=== PATIENT | male | born 1970 | race Caucasian/White ===

== ENCOUNTER 2018-06-01 21:21 | Emergency (ER) | payer BC ==
[2018-06-01] MEDS: ASPIRIN 81 MG CHEWABLE TABLET PO ONE (21:45)
--- NOTE | 2018-06-01 21:45 | Emergency Department Record ---
History of Present Illness - General Chief Complaint: Arrythmia/Palpitations Stated Complaint: RACING HEART RATE, JAW PAIN Time Seen by Provider: 06/01/18 21:25 Source: Patient Mode of Arrival: Ambulatory Limitations: No limitations - History of Present Illness Initial Comments: 48 yo male presents to ED for evaluation of intermittent "racing heart" and jaw pain, is concerned about possible heart problems related to his parathyroid as the patient's twin brother had similar symptoms. Patient reports fatigue as well, is concerned about his thyroid as well. Patient reports that his symptoms seem worse while at rest or with emotional stimulus, denies symptoms with exertion. Patient denies symptoms with exercise, states these symptoms have been present for months. MD Complaint: "Heart racing" Onset/Timin -: Hour(s) Associated Symptoms: Anxiety - Related Data Home Medications Medication Instructions Recorded Confirmed Last Taken No Home Med [NO HOME MEDS] 06/01/18 06/01/18 Unknown Allergies Allergy/AdvReac Type Severity Reaction Status Date / Time No Known Drug Allergies Allergy Verified 06/01/18 21:27 Travel Screening - Travel/Exposure Within Last 30 Days Have you traveled within the last 30 days?: No - Travel Symptoms Symptom Screening: None Review of Systems Constitutional: Denies: Chills, Fever, Malaise, Night sweats Eyes: Denies: Eye discharge, Eye pain ENT: Reports: Other (Jaw pain). Denies: Congestion, Ear pain, Epistaxis Respiratory: Denies: Cough, Dyspnea Cardiovascular: Reports: Palpitations. Denies: Chest pain, Dyspnea on exertion Endocrine: Reports: Fatigue. Denies: Heat or cold intolerance Gastrointestinal: Denies: Abdominal pain, Nausea, Vomiting Genitourinary: Denies: Incontinence, Retention Musculoskeletal: Denies: Arthralgia, Back pain Skin: Denies: Bruising, Change in color Neurological: Denies: Abnormal gait, Confusion, Headache, Seizure Psychiatric: Denies: Anxiety Hematological/Lymphatic: Denies: Anemia, Blood Clots Past Medical History - SOCIAL HISTORY Smoking Status: Never smoker Alcohol Use: None Drug Use: None - RESPIRATORY Hx Respiratory Disorders: No - CARDIOVASCULAR Hx Cardio Disorders: No - NEURO Hx Neuro Disorders: No - GI Hx GI Disorders: No - Hx Genitourinary Disorders: No - ENDOCRINE Hx Endocrine Disorders: No - MUSCULOSKELETAL Hx Musculoskeletal Disorders: No - PSYCH Hx Psych Problems: Yes Hx Anxiety: Yes - HEMATOLOGY/ONCOLOGY Hx Hematology/Oncology Disorders: No Family Medical History Any Significant Family History?: Yes Family Hx Comment (NOT TO BE USED IN PLACE OF ITEMS BELOW): Brother w/thyroid issues. Father w/parkinson's Hx Cancer: Mother Hx Heart Disease: Brother/Sister, Grandparents *Heart Comment: brother w/palpitations Physical Exam - General General Appearance: Alert, Oriented x3, Cooperative, Anxious Limitations: No limitations - Head Head exam: Atraumatic, Normocephalic, Normal inspection Head exam detail: negative: Abrasion, Contusion, Birch's sign, General tenderness, Hematoma, Laceration - Eye Eye exam: Normal appearance. negative: Conjunctival injection, Periorbital swelling, Periorbital tenderness, Scleral icterus - ENT Ear exam: negative: Auricular hematoma, Auricular trauma Nasal Exam: negative: Active bleeding, Discharge, Dried blood, Foreign body Mouth exam: negative: Drooling, Laceration, Muffled voice, Tongue elevation - Neck Neck exam: Normal inspection. negative: Meningismus, Tenderness - Respiratory Respiratory exam: Normal lung sounds bilaterally. negative: Rales, Respiratory distress, Rhonchi, Stridor - Cardiovascular Cardiovascular Exam: Regular rate, Normal rhythm, Normal heart sounds - GI/Abdominal GI/Abdominal exam: Soft. negative: Rebound, Rigid, Tenderness - Rectal Rectal exam: Deferred - exam: Deferred - Extremities Extremities exam: Normal inspection. negative: Pedal edema, Tenderness - Back Back exam: Denies: CVA tenderness (R), CVA tenderness (L) - Neurological Neurological exam: Alert, Normal gait, Oriented X3 - Psychiatric Psychiatric exam: Anxious - Skin Skin exam: Normal color. 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 Reevaluation #2: 06/01/18 22:10 Laboratory studies were reviewed and are grossly unremarkable for an acute process except for mildly low potassium 50 meq ordered PO. The patient was deemed to be low-risk for cardiac disease based on the patient s history and evaluation in the ED, HEART Score was applied and found to be 3. As a result, repeat Troponin in 3-hours appears appropriate and if negative for myocardial injury, the patient may be discharged home with appropriate outpatient follow-up for further evaluation. Reevaluation #3: 06/02/18 01:36 Repeat Troponin is negative. Patient is resting pain-free, appears stable for discharge with instructions for outpatient follow-up in 3-5 days as directed. Medical Decision Making - Lab Data Result diagrams: 06/01/18 21:43 06/01/18 21:43 Disposition Disposition: Discharge Clinical Impression: Atypical chest pain, Hypokalemia Disposition: Home, Self-Care Condition: (2) Stable Instructions: Hypokalemia (ED) Additional Instructions: Return to ED if your symptoms worsen or if you have any concerns. Follow-up with your family doctor in 3-5 days as directed for further cardiac evaluation and possible stress testing. Forms: Patient Portal Access Time of Disposition: 01:37 Quality - Quality Measures Quality Measures: N/A - Blood Pressure Screening Does Patient Have Any of the Following: No Blood Pressure Classification: Hypertensive Reading Systolic Measurement: 156 Diastolic Measurement: 96 Screening for High Blood Pressure: < First Hypertensive BP, F/U Documented > [ [id number]] First Hypertensive Follow-up Interventions: Referral to alternative/primary care provider.
[2018-06-01 21:48] LABS: BASO % 0.5 % (0-6); EOS % 3.1 % (0-6); GRAN % 50.5 % (47-80); HEMATOCRIT 46.2 % (42.0-52.0); HEMOGLOBIN 15.7 gm/dl (14.0-18.0); LYMPH % 36.5 % (16-45); MEAN CELL VOLUME 85.6 fl (81-97); MEAN CORPUSCULAR HEMOGLOBIN 29.1 pg (27-33); MEAN PLATELET VOLUME 9.9 fl (7.4-10.4); MONO % 9.4 % (0-9); PLATELET COUNT 288 K/uL (130-400); RED CELL DISTRIBUTION WIDTH 13.4 % (11.5-14.5); WHITE BLOOD COUNT W/O DIFF 7.5 K/uL (4.2-12.2)
[2018-06-01 21:57] LABS: BLOOD UREA NITROGEN 15 mg/dL (6-20)
[2018-06-01 21:58] LABS: CREATININE 0.8 mg/dL (0.7-1.2); EST GLOMERULAR FILTRATION RATE > 60 mL/min; TOTAL PROTEIN 7.3 g/dL (6.6-8.7)
[2018-06-01 22:00] LABS: GLUCOSE,RANDOM 140 mg/dL (74-109)
[2018-06-01 22:03] LABS: ALB/GLOB RATIO 1.5 (1.1-1.8); ALBUMIN 4.4 g/dL (4.0-5.0); ALKALINE PHOSPHATASE 70 U/L (40-129); ALT/SGPT 48 U/L (<41); AST/SGOT 20 U/L (10.0-50.0); CREATINE PHOSPHOKINASE 113 U/L (39-308)
[2018-06-01 22:06] LABS: CKMB 1.7 ng/mL (<6.73)
[2018-06-01 22:13] LABS: THYROID STIMULATING HORMONE 1.31 uIU/mL (0.270-4.20)
[2018-06-01] MEDS: POTASSIUM BICARB./CIT AC 25 MEQ EFF.TAB PO STA (22:26)
== END 2018-06-02 01:46 | disposition home or self-care (01) ==
LOC: ER 21:21
DX: R07.89 Other chest pain (principal); E87.6 Hypokalemia; R53.83 Other fatigue
CPT/HCPCS: 80053; 82550; 82553; 84443; 84484; 85025; 93005; 93010; 99284